=== PATIENT | female | born 1990 | race Caucasian/White ===

== ENCOUNTER 2016-06-26 09:52 | Emergency (ER) | payer BC ==
[2016-06-26 10:29] VITALS: BP 109/51
--- NOTE | 2016-06-26 12:09 | UC ---
Throat Pain/Nasal Dhiraj HPI - HPI Summary HPI Summary: sore throat, fever, nasal congestion. x 1 day. 8 months . - History of Current Complaint Chief Complaint: UCRespiratory Stated Complaint: HEADACHE SORE THROAT Time Seen by Provider: 06/26/16 11:58 Hx Obtained From: Patient Hx Last Menstrual Period: 11/04/15 ?: Yes Onset/Duration: Sudden Onset, Lasting Days Severity: Moderate Pain Intensity: 6 Pain Scale Used: 0-10 Numeric Cough: None Associated Signs & Symptoms: Positive: Dysphagia, Sinus Discomfort, Fever - Epiglottits Risk Factors Epiglottis Risk Factors: Negative - Allergies/Home Medications Allergies/Adverse Reactions: Allergies Allergy/AdvReac Type Severity Reaction Status Date / Time Bee Venom Allergy Swelling Verified 06/26/16 10:29 Home Medications: Home Medications Acetaminophen TAB* [Tylenol TAB*] 650 mg PO Q4H PRN 06/26/16 [History Confirmed 06/26/16] Vitamin TAB* 1 tab PO DAILY 06/26/16 [History Confirmed 06/26/16] PMH/Surg Hx/FS Hx/Imm Hx Previously Healthy: Yes Endocrine History Of: Denies: Diabetes, Thyroid Disease, Hyperthyroidism, Hypothyroidism, Dyslipidemia Cardiovascular History Of: Denies: Cardiac Disorders, Hypertension, Pacemaker/ICD, Myocardial Infarction , Congestive Heart Failure, Atrial Fibrillation, Deep Vein Thrombosis, Bleeding Disorders Respiratory History Of: Reports: Asthma - "I was born with it. I only had one problem with it as a child." Denies: COPD, Bronchitis, Pneumonia, Pulmonary Embolism GI/ History Of: Reports: Kidney Stones Denies: Gastroesophageal Reflux, Ulcer, Gastrointestinal Bleed, Gall Bladder Disease, Diverticulitis, Renal Disease, Urosepsis Neurological History Of: Denies: TIA, CVA, Dementia, Seizures, Migraine Psychological History Of: Reports: Anxiety, Depression Denies: Bipolar Disorder, Schizophrenia, Post Traumatic Stress Disorder Cancer History Of: Denies: Lung Cancer, Colorectal Cancer, Breast Cancer, Prostate Cancer, Cervical Cancer Other History Of: Negative For: HIV, Hepatitis B, Hepatitis C, Anticoagulant Therapy - Surgical History Surgical History: Yes Surgery Procedure, Year, and Place: Kidney stone removal. . TONSILLECTOMY - Family History Known Family History: Positive: Unknown, Hypertension, Diabetes, Other - Cancer - Social History Alcohol Use: Rare Substance Use Type: None Substance Use Comment - Amount & Last Used: daily mj use Smoking Status (MU): Current Every Day Smoker Type: Cigarettes Amount Used/How Often: 5 cig./day Have You Smoked in the Last Year: Yes Household Exposure Type: Cigarettes - Immunization History Most Recent Influenza Vaccination: none Most Recent Tetanus Shot: unknown Most Recent Pneumonia Vaccination: none Review of Systems Constitutional: Fever, Fatigue Skin: Negative Eyes: Negative ENT: Sore Throat, Nasal Discharge Respiratory: Cough Cardiovascular: Negative Gastrointestinal: Negative Genitourinary: Negative Motor: Negative Musculoskeletal: Myalgia Neurological: Negative Psychological: Negative All Other Systems Reviewed And Are Negative: Yes Physical Exam Triage Information Reviewed: Yes Appearance: Well-Nourished, Ill-Appearing, Pain Distress Vital Signs: Initial Vital Signs Temp 97.5 F 06/26/16 10:25 Pulse 86 06/26/16 10:25 Resp 14 06/26/16 10:25 BP 109/51 06/26/16 10:25 Pulse Ox 98 06/26/16 10:25 Vital Signs Reviewed: Yes Eye Exam: Normal Eyes: Positive: Conjunctiva Clear ENT: Positive: Pharyngeal erythema, Nasal drainage, TMs normal Dental Exam: Normal Neck exam: Normal Neck: Positive: Supple, Nontender, No Lymphadenopathy Respiratory Exam: Normal Respiratory: Positive: Chest non-tender, Lungs clear, Normal breath sounds Cardiovascular Exam: Normal Cardiovascular: Positive: RRR, No Murmur, Pulses Normal Abdominal Exam: Normal Abdomen Description: Positive: Nontender, No Organomegaly, Soft, Other: - 8 months Bowel Sounds: Positive: Present Musculoskeletal Exam: Normal Musculoskeletal: Positive: Strength Intact, ROM Intact, No Edema Neurological Exam: Normal Neurological: Positive: Alert, Muscle Tone Normal Psychological Exam: Normal Skin Exam: Normal Throat Pain/Nasal Course/Dx - Course Course Of Treatment: hx obtained, exam performed, rapid strep negative, HEART tone 141, no meds prescribed. educated on symptoms reflief - Differential Dx/Diagnosis Differential Diagnosis/HQI/PQRI: Influenza, Laryngitis, Mononucleosis, Otitis Media, Pharyngitis, Sinusitis, Tonsillitis, URI Provider Diagnoses: pharyngitis. fever Discharge - Discharge Plan Condition: Stable Disposition: HOME Patient Education Materials: Pharyngitis (ED) Forms: *Work Release Additional Instructions: Lots of rest and increase your fluid intake. Hot tea with lemon, nelia and honey for the sore throat. Do not take ibuprofen due to . Follow up if symptoms do not begin to resolve within the next few days.
== END 2016-06-26 12:20 | disposition home or self-care (01) ==
LOC: UCCORT 09:52
DX: O26.93 Pregnancy related conditions, unspecified, third trimester (principal); J02.9 Acute pharyngitis, unspecified; R50.9 Fever, unspecified; J45.909 Unspecified asthma, uncomplicated; O99.343 Other mental disorders complicating pregnancy, third trimester; F41.9 Anxiety disorder, unspecified; F33.8 Other recurrent depressive disorders; O99.333 Smoking (tobacco) complicating pregnancy, third trimester; F17.210 Nicotine dependence, cigarettes, uncomplicated; Z3A.32 32 weeks gestation of pregnancy; Z91.030 Bee allergy status
CPT/HCPCS: 87502; 99211; G0463

== ENCOUNTER 2016-07-18 16:53 | Emergency (ER) | payer BC ==
--- NOTE | 2016-07-18 17:25 | UC ---
Abdominal Pain Female HPI - HPI Summary HPI Summary: pt presents with FOB and mother. Pt reports gradual onset of lower pelvis and groin discomfort that is constant. Pt is 36 weeks with a schedule C- section for 09/01/16. Pt denies any pre existing conditions of preeclampsia, Gestational Diabetes or report of recent injury or fall. Pt denies any vaginal discharge or bleeding. Pt denies history of pre term labor. Pt reports that she spoke to her OB provider today requesting a release from work note that was denies by the OB. 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 during her - History of Current Complaint Chief Complaint: UCAbdominalPain Stated Complaint: ABDOMINAL PAIN Time Seen by Provider: 07/18/16 16:56 Hx Obtained From: Patient Hx Last Menstrual Period: 11/04/15 ?: Yes Onset/Duration: Gradual Onset Timing: Constant Severity Initially: Mild Severity Currently: Mild Location: Suprapubic, Other - groin Radiates: No Character: Cramping, Dull Aggravating Factor(s): Nothing Alleviating Factor(s): Nothing Associated Signs and Symptoms: Positive: Negative - Risk Factors Ectopic Risk Factor: Negative Allergies/Adverse Reactions: Allergies Allergy/AdvReac Type Severity Reaction Status Date / Time Bee Venom Allergy Swelling Verified 07/18/16 17:03 PMH/Surg Hx/FS Hx/Imm Hx Previously Healthy: Yes Endocrine History Of: Denies: Diabetes, Thyroid Disease, Hyperthyroidism, Hypothyroidism, Dyslipidemia Cardiovascular History Of: Denies: Cardiac Disorders, Hypertension, Pacemaker/ICD, Myocardial Infarction , Congestive Heart Failure, Atrial Fibrillation, Deep Vein Thrombosis, Bleeding Disorders Respiratory History Of: Reports: Asthma - "I was born with it. I only had one problem with it as a child." Denies: COPD, Bronchitis, Pneumonia, Pulmonary Embolism GI/ History Of: Reports: Kidney Stones Denies: Gastroesophageal Reflux, Ulcer, Gastrointestinal Bleed, Gall Bladder Disease, Diverticulitis, Renal Disease, Urosepsis Neurological History Of: Denies: TIA, CVA, Dementia, Seizures, Migraine Psychological History Of: Reports: Anxiety, Depression Denies: Bipolar Disorder, Schizophrenia, Post Traumatic Stress Disorder Cancer History Of: Denies: Lung Cancer, Colorectal Cancer, Breast Cancer, Prostate Cancer, Cervical Cancer Other History Of: Negative For: HIV, Hepatitis B, Hepatitis C, Anticoagulant Therapy - Surgical History Surgical History: Yes Surgery Procedure, Year, and Place: Kidney stone removal. . TONSILLECTOMY - Family History Known Family History: Positive: Unknown, Hypertension, Diabetes, Other - Cancer - Social History Occupation: Employed Full-time - works as a commercial cleaner Alcohol Use: Rare Substance Use Type: None Substance Use Comment - Amount & Last Used: daily mj use Smoking Status (MU): Current Every Day Smoker Type: Cigarettes Amount Used/How Often: 5 cig./day Have You Smoked in the Last Year: Yes Household Exposure Type: Cigarettes - Immunization History Most Recent Influenza Vaccination: none Most Recent Tetanus Shot: unknown Most Recent Pneumonia Vaccination: none Review of Systems Constitutional: Negative Skin: Negative Eyes: Negative ENT: Negative Respiratory: Negative Cardiovascular: Negative Gastrointestinal: Abdominal Pain Genitourinary: Negative Motor: Negative Neurovascular: Negative Musculoskeletal: Negative Neurological: Negative Psychological: Negative All Other Systems Reviewed And Are Negative: Yes Physical Exam Triage Information Reviewed: Yes Appearance: Well-Appearing Vital Signs: Initial Vital Signs Pulse 76 07/18/16 16:57 Resp 20 07/18/16 16:57 BP 115/65 07/18/16 16:57 Pulse Ox 100 07/18/16 16:57 Vital Signs Reviewed: Yes ENT Exam: Normal Neck exam: Normal Respiratory Exam: Normal Cardiovascular Exam: Normal Abdominal Exam: Normal Abdomen Description: Positive: Other: - heart rate @ 140, no abdominal pain appreciated during physical exam. Musculoskeletal Exam: Normal Musculoskeletal: Positive: Other: - no edeam lower extremities appreciated Neurological Exam: Normal Psychological Exam: Normal Skin Exam: Normal Abd Pain Female Course/Dx - Course Course Of Treatment: I discussed with the pt the need to seek further examination at the Emergency Department if her regular OB provider is not available. I reveiwed her UA results and her vital signs with her. Pt verbalized understanding and agreed to plan of care. - Differential Dx/Diagnosis Differential Diagnosis: , Urinary Tract Infection, Other - abdominal pain pre term labor? Provider Diagnoses: abdominal pain. labor-? - Physician Notification/Consults Discussed Patient Care With: Dr. Almanza Time Discussed With Above Provider: 18:10 - Dr. Almanza accepted pt Discharge - Discharge Plan Condition: Stable Disposition: AGAINST MEDICAL ADVICE Referrals: Bib Vargas MD [Primary Care Provider] -
[2016-07-18 18:02] VITALS: BP 114/74
== END 2016-07-18 17:59 | disposition left against medical advice (07) ==
LOC: UCEAST 16:53
DX: O26.893 Other specified pregnancy related conditions, third trimester (principal); Z3A.36 36 weeks gestation of pregnancy; R10.30 Lower abdominal pain, unspecified; Z87.442 Personal history of urinary calculi; F12.90 Cannabis use, unspecified, uncomplicated; F17.210 Nicotine dependence, cigarettes, uncomplicated
CPT/HCPCS: 81003; 99213; G0463

== ENCOUNTER → 2016-07-18 18:17 | Emergency (ER) | payer BC ==
[2016-07-18 18:28] VITALS: BP 123/67
== END | disposition other institution (70) ==
LOC: ED 18:17
DX: R10.9 Unspecified abdominal pain (principal); Z53.20 Procedure and treatment not carried out because of patient's decision for unspecified reasons

== ENCOUNTER 2016-09-02 07:59 | Inpatient (IN) | payer BC ==
[~2016-09-02 07:59] MED LIST: Buffered Lidocaine 1% SYRIN* 3 ML/SYR SYRINGE INTRADERM ONE; Sodium Citrate/Citric Acid* 15 ML UDC PO ONE
[2016-09-02] MEDS ORDERED: Lidocaine 1% MPF* 2 ML VIAL ONE (09:03)
[2016-09-02] MEDS ORDERED: ceFAZolin 2 GM PREMIX(*) 2 GM/50 ML BAG IVPB ONE (09:05)
[2016-09-02] MEDS ORDERED: Morphine PF AMP (0.5MG/ML)* 5 MG/10 ML AMP ONE (10:20)
[2016-09-02] MEDS ORDERED: Phenylephrine IV* 40 MCG/ML 10 ML SYRINGE ONE (10:20)
[2016-09-02] MEDS ORDERED: OXYTOCIN* 10 UNITS/ML 1 ML VIAL ONE (10:20)
[2016-09-02] MEDS ORDERED: Ondansetron INJ* 2 MG/ML VIAL IV PRN ×2 (10:35→11:19)
[2016-09-02] MEDS ORDERED: fentaNYL* 50 MCG/ML 2 ML VIAL (100 MCG VIAL) IV PRN (10:35)
[2016-09-02] MEDS ORDERED: Ketorolac INJ* 30 MG/ML 1 ML VIAL ONE (10:44)
[2016-09-02] MEDS ORDERED: fentaNYL* 50 MCG/ML 2 ML VIAL (100 MCG VIAL) ONE (11:11)
[2016-09-02] MEDS ORDERED: Naloxone* 0.4 MG/ML 1 ML VIAL IV PRN (11:19)
[2016-09-02] MEDS ORDERED: diPHENhydraMINE IV* 50 MG/ML 1 ml VIAL (BENADRYL) IV PRN (11:19)
[2016-09-02] MEDS ORDERED: oxyCODONE/Acetamin 5/325 MG* TAB PO PRN ×2 (11:19)
[2016-09-02] MEDS ORDERED: Oxytocin in LR* 20 UNITS/1,000 ML BAG IVPB ONE (12:10)
[2016-09-02] MEDS ORDERED: Witch Hazel PAD* JAR TOPICAL PRN (12:27)
[2016-09-02] MEDS ORDERED: Dibucaine 1% 28.35 GM TUBE PR PRN (12:27)
[2016-09-02] MEDS ORDERED: Glycerin ADULT SUPP PR PRN (12:27)
[2016-09-02] MEDS ORDERED: Oxytocin in LR* 20 UNITS/1,000 ML BAG IVPB SCH (13:00)
[2016-09-02] MEDS: Simethicone CHEW TAB* 80 MG PO SCH ×3 (18:10→20:16)
[2016-09-02] MEDS: Docusate CAP* 100 MG PO SCH ×2 (18:10→20:16)
[2016-09-02] MEDS: Ketorolac INJ* 30 MG/ML 1 ML VIAL IV PRN (20:14)
[2016-09-03] MEDS ORDERED: oxyCODONE/Acetamin 5/325 MG* TAB PO PRN (03:00)
[2016-09-03] MEDS ORDERED: Acetaminophen TAB* 325 MG PO PRN (03:00)
--- NOTE | 2016-09-03 03:21 | OP ---
DATE OF OPERATION: 09/02/16 - ROOM #[facility]CHOB-116 DATE OF : 89 SURGEON: Teresa Ron MD ASSISTANTS: Dr. Farah and Violet Quick CNM. ANESTHESIOLOGIST: Dr. Veronica. ANESTHESIA: Spinal. PRE-OP DIAGNOSES: 1. 39 plus weeks gestation, prior section. 2. Multiparity, desires permanent sterilization. POST-OP DIAGNOSES: 1. 39 plus weeks gestation, prior section. 2. Multiparity, desires permanent sterilization. OPERATIVE PROCEDURE: 1. Elective repeat . 2. Bilateral fimbriectomies. ESTIMATED BLOOD LOSS: 600 cc. SPECIMEN: Bilateral fimbriectomies. FLUIDS: 2600 cc. DRAINS: Huffman catheter 300 cc clear urine. FINDINGS: Viable female infant in the vertex presentation, left occiput transverse position. Cord around the neck x1 reduced. Apgars were 9 and 9. Weight was 6 pounds 1 ounce. Normal-appearing uterus, normal-appearing ovaries and fallopian tubes bilaterally. COMPLICATIONS: None. COUNTS: Sponge, lap, and needle count correct x2. CONDITION: The patient tolerated the procedure well and was brought to recovery room awake and in stable condition. DESCRIPTION OF PROCEDURE: The patient was brought to the operating room when spinal anesthesia was found to be adequate. A Huffman catheter was placed under sterile conditions. The patient was prepped and draped in the usual sterile fashion in the dorsal supine position with a leftward tilt. Time-out was performed. The spinal was tested with Allis clamps and found to be adequate. A Pfannenstiel skin incision was made using the old incision. This was carried down to underlying layer of fascia. The fascia was incised in the midline and the fascial incision was extended laterally. The fascia was grasped with Fran clamps and the rectus muscle was dissected using sharp and blunt dissection. The rectus muscle was in the midline. The peritoneum was identified, tented up, and entered bluntly. Peritoneal incision was extended bluntly. The bladder blade was inserted. The vesicouterine peritoneum was identified and a bladder flap was created. The bladder blade was reinserted. A low flap transverse incision was made on the uterus to the level of the membranes. The uterine incision was extended bluntly. The membranes were ruptured with the Allis clamps. Clear amniotic fluid was encountered. The infant was delivered atraumatically from the vertex presentation. Cord around the neck x1 was reduced. The baby was vigorous. The cord was milked, clamped and cut and the infant was handed off to the waiting rack production worker, Dr. Mckeon. Apgars were 9 and 9. The placenta was delivered. The uterus was exteriorized. The uterus was cleared off all clots and debris and the uterine incision was repaired using 0 Vicryl in a running locked fashion. A second layer of the same suture was used to imbricate and obtain excellent hemostasis. The ovaries and fallopian tubes were examined and found to be normal. Attention was turned to the patient's left fallopian tube, which was followed out to the fimbriated end. It was doubly clamped along the distal two thirds of the left fallopian tube with a Sylvie clamp. A free tie of 0 Vicryl was placed and then a suture ligature of 0 Vicryl was placed. Portion of fallopian tube including all of the fimbriae was excised. Excellent hemostasis was noted. Attention was then turned to the patient's right fallopian tube, which was followed out to the fimbriated end. This was also doubly clamped with the Sylvie clamp. A free tie of 0 Vicryl was placed. Suture ligature of 0 Vicryl was placed and the distal two thirds of the fallopian tube were excised. Excellent hemostasis was noted at that site. Once again, the uterine incision was examined and found to be hemostatic. The abdomen and pelvis were copiously irrigated with warm normal saline. The uterus was returned to the pelvis. The gutters were cleared of all clots and debris and again the uterine incision was examined and found to be hemostatic. Both tubal ligation sites were examined and found to be hemostatic. The peritoneum was closed using 3-0 Vicryl. The subfascial layer was examined and found to be hemostatic. The fascia was closed using 0 Vicryl. The subcutaneous tissue was irrigated. Any small bleeders were cauterized with Bovie. The subcutaneous tissue was reapproximated with 3 interrupted sutures of 3-0 Vicryl. The skin was closed with 4-0 Monocryl in a subcuticular fashion. Mastisol was applied. Steri-Strips were applied. A pressure dressing was applied and the patient was brought to recovery room, awake, and in stable condition. The fundus was firm and the Huffman catheter was draining clear urine. [id number] #: [id number] MTDD
[2016-09-03] MEDS: Ketorolac INJ* 30 MG/ML 1 ML VIAL IV PRN (04:20)
[2016-09-03] MEDS: oxyCODONE/Acetamin 5/325 MG* TAB PO PRN ×3 (04:20→19:40)
[2016-09-03 08:15] LABS: Hematocrit 35 % (35-47); Hemoglobin 11.5 g/dl (12.0-16.0); Mean Corpuscular HGB Conc 33 g/dl (31-36); Mean Corpuscular Hemoglobin 27 pg (27-31); Mean Corpuscular Volume 81 fL (80-97); Mean Platelet Volume 8 um3 (7.4-10.4); Red Blood Count 4.33 10^6/ul (4.0-5.4); Red Cell Distribution Width 14 % (10.5-15); White Blood Count 16.3 10^3/ul (3.5-10.8)
[2016-09-03] MEDS: Docusate CAP* 100 MG PO SCH ×3 (08:50→20:10)
[2016-09-03] MEDS: Simethicone CHEW TAB* 80 MG PO SCH ×4 (08:50→20:10)
[2016-09-03] MEDS ORDERED: Tetan/Diph/Pertus SYR(Tdap)* 0.5 ML SYR(BOOSTRIX) use SYR IM ONE (09:00)
[2016-09-03] MEDS ORDERED: Ferrous Gluconate TAB* 324 MG TAB PO SCH (09:00)
[2016-09-03] MEDS: Ibuprofen TAB* 600 MG PO PRN ×2 (11:29→17:46)
[2016-09-04] MEDS: Ibuprofen TAB* 600 MG PO PRN ×3 (01:33→14:18)
[2016-09-04] MEDS: oxyCODONE/Acetamin 5/325 MG* TAB PO PRN ×2 (05:58→14:17)
[2016-09-04] MEDS: Simethicone CHEW TAB* 80 MG PO SCH ×2 (07:24→14:17)
[2016-09-04] MEDS: Docusate CAP* 100 MG PO SCH ×2 (07:24→14:17)
[2016-09-04 07:28] VITALS: BP 115/52
== END 2016-09-04 16:04 | disposition home or self-care (01) | DRG 540 ==
LOC: MCHOB 07:59
PROVIDERS: ADMIT Obstetrics & Gynecology; ATTEND Obstetrics & Gynecology
PROC: 0UB70ZZ Excision of Bilateral Fallopian Tubes, Open Approach (ICD-10-PCS; 2016-09-02)
PROC: 10D00Z1 Extraction of Products of Conception, Low, Open Approach (ICD-10-PCS; principal; 2016-09-02 09:45)
DX: O34.211 Maternal care for low transverse scar from previous cesarean delivery (principal); F17.210 Nicotine dependence, cigarettes, uncomplicated; O99.334 Smoking (tobacco) complicating childbirth; F12.10 Cannabis abuse, uncomplicated; Z3A.39 39 weeks gestation of pregnancy; Z37.0 Single live birth
CPT/HCPCS: 36415; 85025; 88302; 90715; A9270-GY; J0690; J1200; J1885; J2405; J2590; J3010

== ENCOUNTER 2017-10-23 10:24 | Emergency (ER) | payer BC ==
[2017-10-23 10:35] VITALS: BP 127/75
--- NOTE | 2017-10-24 09:32 | UC ---
Stacey Houser Tenzin, scribed for Munira Messer MD on 10/23/17 at 1103 . General HPI - HPI Summary HPI Summary: Pt is a 26 years old female presenting to the complaining of sore throat and blisters on her hands today. Pt reports that her children have hand foot mouth disease and they have blisters too. Pt is also complaining of fever at 102.7 last night. Pt rates the pain at 6/10 in severity and describes it as aching, sharp and burning. Pt with sores in mouth - painful swallowing. No aggravating and alleviating factors were noted. She took ibuprofen last night at 18:00. Pt is not allergic to any medication. She is not . Pt's medications reviewed this visit - History of Current Complaint Chief Complaint: UCGeneralIllness Stated Complaint: SORE THROAT FEVER BODYACHES BLISTERS ON HANDS Time Seen by Provider: 10/23/17 10:41 Hx Obtained From: Patient Hx Last Menstrual Period: 10/09/17 Onset/Duration: Gradual Onset Pain Intensity: 6 - Allergy/Home Medications Allergies/Adverse Reactions: Allergies Allergy/AdvReac Type Severity Reaction Status Date / Time bee venom protein (honey bee) Allergy anaph Verified 10/23/17 10:36 PMH/Surg Hx/FS Hx/Imm Hx - Additional Past Medical History Additional PMH: NEGATIVE: [place] Previously Healthy: Yes GI/ History: Kidney Stones Other History Of: Negative For: HIV, Hepatitis B, Hepatitis C, Anticoagulant Therapy - Surgical History Surgical History: Yes Surgery Procedure, Year, and Place: Kidney stone removal. . TONSILLECTOMY - Family History Known Family History: Positive: Unknown, Hypertension, Diabetes, Other - Cancer - Social History Alcohol Use: Rare Substance Use Type: None Substance Use Comment - Amount & Last Used: regular use Smoking Status (MU): Light Every Day Tobacco Smoker Type: Cigarettes Amount Used/How Often: 5 cig./day Have You Smoked in the Last Year: Yes Household Exposure Type: Cigarettes - Immunization History Most Recent Influenza Vaccination: none Most Recent Tetanus Shot: unknown Most Recent Pneumonia Vaccination: none Review of Systems Constitutional: Negative, Fever Skin: Other - blisters. Eyes: Negative ENT: Sore Throat Respiratory: Negative Cardiovascular: Negative Gastrointestinal: Negative Genitourinary: Negative Motor: Negative Neurovascular: Negative Musculoskeletal: Negative Neurological: Negative Psychological: Negative All Other Systems Reviewed And Are Negative: Yes Physical Exam - Summary Physical Exam Summary: Vital Signs Reviewed: Yes A+Ox3, no distress Eyes: Conjunctiva Clear HALLE, EOM intact and full ENT: Hearing grossly normal TM x2 clear turbinates inflammed and boggy + PND no exudate Pt with flat,ulcerative lesions to soft palate mild erythema, no exudate uvula midline no exudate neck: supple no LA Respiratory: Positive: No respiratory distress, No accessory muscle use CTA throughotu no w/r Cardiovascular: skin color reflect adequate perfusion RRR nl s1, sw Musculoskeletal Exam: GOFF x 4 without difficulty Neurological: Positive: Alert, ambulatory without difficulty Psychological: Positive: Normal Response To Family Skin: Positive: small bliser lisle lesions on b.l hand, fingers, palms mild tender no edema no ecchymosis Triage Information Reviewed: Yes Vital Signs: Initial Vital Signs Temp 98 F 10/23/17 10:33 Pulse 92 10/23/17 10:33 Resp 16 10/23/17 10:33 BP 127/75 10/23/17 10:33 Pulse Ox 99 10/23/17 10:33 Course/Dx - Course Course Of Treatment: Pt with fever, mouth and hand sores. pts children with hand foot mouth. pt with fever yesterday. Pt with exam finidng s/w h/f/m. recommend motrin/apap. cold foods. secretion precaution. work note. pt comfortable and in agreement with plan - Differential Dx - Multi-Symptom Provider Diagnoses: hand foot and mouth Discharge - Sign-Out/Discharge Documenting (check all that apply): Discharge/Admit/Transfer - Discharge Plan Condition: Stable Disposition: HOME Patient Education Materials: Hand, Foot, and Mouth Disease (ED) Forms: *Work Release Referrals: No Primary Care Phys,NOPCP [Primary Care Provider] - Additional Instructions: - These infections are spread by oral secretions. Do not share eating or drinking utensils. Frequent hand washing is important. Clean items that may get your secretions on them such as cell phones, ipads, computer mouse, television remotes. Once you start to feel better, change your pillowcase and your toothbrush - Okay to alternate ibuprofen (Advil, Motrin) and Tylenol product every 3 hours for pain or fever. Take with food. Do NOT take for more than 4-5 days. - Okay to gargle and spit every 4 hours as needed for pain - Stay well hydrated - frequent sips of cold fluids will be soothing to your throat (popsicles, jello, ice cream, ice water). Avoid excess caffeine until your symptoms have resolved. - get plenty of restful sleep - contact your doctor or return with questions or concerns - Billing Disposition and Condition Condition: STABLE Disposition: Home The documentation as recorded by the Stacey evans Tenzin accurately reflects the service I personally performed and the decisions made by , Munira Messer MD.
== END 2017-10-23 11:07 | disposition home or self-care (01) ==
LOC: UCEAST 10:24
DX: B08.4 Enteroviral vesicular stomatitis with exanthem (principal); Z91.030 Bee allergy status; F17.210 Nicotine dependence, cigarettes, uncomplicated
CPT/HCPCS: 99211; G0463

== ENCOUNTER 2019-06-13 13:34 | Emergency (ER) | payer BC ==
[2019-06-13 13:59] VITALS: BP 125/84
--- NOTE | 2019-06-13 14:49 | UC ---
Complaint Female HPI - HPI Summary HPI Summary: Ms. Ellis started yesterday morning with frequency urgency and dysuria. She has a history of having multiple urinary tract infections however she has not had one in several years. She denies any fever, nausea and vomiting or back pain. - History Of Current Complaint Chief Complaint: UCGU Stated Complaint: URINARY ISSUES Time Seen by Provider: 06/13/19 14:32 Hx Last Menstrual Period: 05/30/19 ?: No - Tubal 3 years ago Severity Initially: Moderate Severity Currently: Moderate Pain Intensity: 6 Character: Burning Aggravating Factor(s): Urination Alleviating Factor(s): Nothing Associated Signs And Symptoms: Positive: Negative - Allergies/Home Medications Allergies/Adverse Reactions: Allergies Allergy/AdvReac Type Severity Reaction Status Date / Time bee venom protein (honey bee) Allergy anaph Verified 06/13/19 13:59 Home Medications: Home Medications NK [No Home Medications Reported] 06/13/19 [History Confirmed 06/13/19] PMH/Surg Hx/FS Hx/Imm Hx Previously Healthy: Yes Other History Of: Negative For: HIV, Hepatitis B, Hepatitis C, Anticoagulant Therapy - Surgical History Surgical History: Yes Surgery Procedure, Year, and Place: Kidney stone removal. . TONSILLECTOMY. Tubal - Family History Known Family History: Positive: Unknown, Hypertension, Diabetes, Other - Cancer - Social History Alcohol Use: Rare Substance Use Type: None Substance Use Comment - Amount & Last Used: regular use Smoking Status (MU): Light Every Day Tobacco Smoker Type: Cigarettes Amount Used/How Often: 5 cig./day Have You Smoked in the Last Year: Yes Household Exposure Type: Cigarettes - Immunization History Most Recent Influenza Vaccination: none Most Recent Tetanus Shot: unknown Most Recent Pneumonia Vaccination: none Review of Systems All Other Systems Reviewed And Are Negative: Yes Constitutional: Positive: Negative Skin: Positive: Negative Gastrointestinal: Positive: Negative Genitourinary: Positive: Dysuria, Frequency, Urgency Neurovascular: Positive: Negative Physical Exam - Summary Physical Exam Summary: She is nontoxic in appearance with stable vital signs Triage Information Reviewed: Yes Appearance: Well-Appearing Vital Signs: Initial Vital Signs Temp 97.8 F 06/13/19 13:56 Pulse 69 06/13/19 13:56 Resp 18 06/13/19 13:56 BP 125/84 06/13/19 13:56 Pulse Ox 100 06/13/19 13:56 Vital Signs Reviewed: Yes Eye Exam: Normal ENT Exam: Normal Respiratory Exam: Normal Cardiovascular Exam: Normal Abdominal Exam: Normal Complaint Female Dx - Course Course Of Treatment: I will treat her U/A and symptoms while awaiting cultures. - Differential Dx/Diagnosis Provider Diagnosis: UTI (urinary tract infection) Discharge ED - Sign-Out/Discharge Documenting (check all that apply): Patient Departure All imaging exams completed and their final reports reviewed: No Studies - Discharge Plan Condition: Stable Disposition: HOME Patient Education Materials: Urinary Tract Infection in Women (ED) Referrals: No Primary Care Phys,NOPCP [Primary Care Provider] - - Billing Disposition and Condition Condition: STABLE Disposition: Home
--- NOTE | 2019-06-15 16:36 | UC ---
- Progress Note Progress Note: Urine culture with no growth. If feeling better - may complete anbx If not feeling better - stop anbx and recommend recheck with PCP Course/Dx - Diagnoses Provider Diagnoses: UTI (urinary tract infection) Discharge ED - Sign-Out/Discharge Documenting (check all that apply): Post-Discharge Follow Up All imaging exams completed and their final reports reviewed: No Studies - Discharge Plan Condition: Stable Disposition: HOME Prescriptions: Nitrofurantoin Monohyd/M-Cryst [Macrobid 100 mg Capsule] 100 mg PO BID #14 cap Patient Education Materials: Urinary Tract Infection in Women (ED) Referrals: No Primary Care Phys,NOPCP [Primary Care Provider] - - Billing Disposition and Condition Condition: STABLE Disposition: Home
--- NOTE | 2019-06-16 07:01 | UC ---
- Progress Note Progress Note: Patient's urine culture showed no growth. Should stop antibiotics. If still having symptoms she should follow up with her PCP or return to urgent care Course/Dx - Diagnoses Provider Diagnoses: UTI (urinary tract infection) Discharge ED - Sign-Out/Discharge Documenting (check all that apply): Post-Discharge Follow Up All imaging exams completed and their final reports reviewed: No Studies - Discharge Plan Condition: Stable Disposition: HOME Prescriptions: Nitrofurantoin Monohyd/M-Cryst [Macrobid 100 mg Capsule] 100 mg PO BID #14 cap Patient Education Materials: Urinary Tract Infection in Women (ED) Referrals: No Primary Care Phys,NOPCP [Primary Care Provider] - - Billing Disposition and Condition Condition: STABLE Disposition: Home
== END 2019-06-13 14:57 | disposition home or self-care (01) ==
LOC: UCEAST 13:34
DX: N39.0 Urinary tract infection, site not specified (principal); Z91.030 Bee allergy status; F17.210 Nicotine dependence, cigarettes, uncomplicated
CPT/HCPCS: 81003; 87086; 99212; G0463

== ENCOUNTER 2019-07-28 10:18 | Emergency (ER) | payer BC ==
[2019-07-28 11:57] VITALS: BP 138/78
--- NOTE | 2019-07-28 12:16 | UC ---
Respiratory Complaint HPI - HPI Summary HPI Summary: The patient is a 28-year-old female who works at [email or web address]. She has had less in the 48 hour history of fever, chills, headache, cough and nausea. She denies any chest pain or shortness of breath. She has had no diarrhea. She denies any UTI symptoms. She has a history of asthma. - History of Current Complaint Chief Complaint: UCGeneralIllness Stated Complaint: COUGH,FEVER,NAUSEA,HEADACHE Time Seen by Provider: 07/28/19 11:24 Hx Obtained From: Patient Hx Last Menstrual Period: 05/30/19 Onset/Duration: Gradual Onset, Lasting Hours Timing: Constant Severity Initially: Moderate Severity Currently: Moderate Pain Intensity: 6 Pain Scale Used: 0-10 Numeric Character: Cough: Nonproductive Aggravating Factors: Exertion, Deep Breaths Alleviating Factors: Nothing Associated Signs And Symptoms: Positive: Fever, Chills, Nasal Congestion - Allergies/Home Medications Allergies/Adverse Reactions: Allergies Allergy/AdvReac Type Severity Reaction Status Date / Time bee venom protein (honey bee) Allergy anaph Verified 07/28/19 10:52 PMH/Surg Hx/FS Hx/Imm Hx Previously Healthy: Yes Other History Of: Negative For: HIV, Hepatitis B, Hepatitis C, Anticoagulant Therapy - Surgical History Surgical History: Yes Surgery Procedure, Year, and Place: Kidney stone removal. . TONSILLECTOMY. Tubal - Family History Known Family History: Positive: Hypertension, Diabetes, Other - Cancer - Social History Alcohol Use: Rare Substance Use Type: None Substance Use Comment - Amount & Last Used: regular use Smoking Status (MU): Light Every Day Tobacco Smoker Type: Cigarettes Amount Used/How Often: 5 cig./day Have You Smoked in the Last Year: Yes Household Exposure Type: Cigarettes - Immunization History Most Recent Influenza Vaccination: none Most Recent Tetanus Shot: unknown Most Recent Pneumonia Vaccination: none Review of Systems All Other Systems Reviewed And Are Negative: Yes Constitutional: Positive: Fever, Chills, Fatigue Skin: Positive: Negative Eyes: Positive: Negative ENT: Positive: Negative Respiratory: Positive: Cough Cardiovascular: Positive: Negative Gastrointestinal: Positive: Nausea Genitourinary: Positive: Negative Motor: Positive: Negative Neurovascular: Positive: Negative Musculoskeletal: Positive: Myalgia Neurological/Mental Status: Positive: Headache Psychological: Positive: Negative Physical Exam Triage Information Reviewed: Yes Appearance: Well-Appearing, No Pain Distress, Well-Nourished Vital Signs: Initial Vital Signs Temp 98.2 F 07/28/19 11:52 Pulse 86 07/28/19 11:52 Resp 20 07/28/19 11:52 BP 138/78 07/28/19 11:52 Pulse Ox 96 07/28/19 11:52 Vital Signs Reviewed: Yes Eyes: Positive: Conjunctiva Clear ENT: Positive: Hearing grossly normal, TMs normal, Uvula midline. Negative: Pharyngeal erythema, Nasal congestion, Nasal drainage, Tonsillar swelling, Tonsillar exudate, Trismus, Muffled voice, Hoarse voice, Dental tenderness, Sinus tenderness Dental Exam: Normal Neck: Positive: Supple, Nontender, No Lymphadenopathy Respiratory: Positive: Lungs clear, Normal breath sounds, No respiratory distress, No accessory muscle use Cardiovascular: Positive: RRR, No Murmur Musculoskeletal: Positive: ROM Intact, No Edema Neurological: Positive: Alert Psychological Exam: Normal Skin Exam: Normal Diagnostics - Laboratory Lab Results: POC influneza - Respiratory Course/Dx - Differential Dx/Diagnosis Provider Diagnosis: Viral syndrome Discharge ED - Sign-Out/Discharge Documenting (check all that apply): Patient Departure All imaging exams completed and their final reports reviewed: No Studies - Discharge Plan Condition: Stable Disposition: HOME Patient Education Materials: Viral Syndrome (ED) Forms: *Work Release Referrals: [facility] [Outside] - If Needed (you bp was a little high here. Should be rechecked in 2-6 mos) Additional Instructions: you FLU test was NEGATIVE A test for COVID -19 is pending Recheck for new or worsening symptoms see In-Home Isolation form he health department will be contacting you - Billing Disposition and Condition Condition: STABLE Disposition: Home
[2019-07-28 12:38] LABS: Influenza A Molecular Negative (Negative); Influenza B Molecular Negative (Negative)
== END 2019-07-28 12:44 | disposition home or self-care (01) ==
LOC: UCEAST 10:18
DX: B34.9 Viral infection, unspecified (principal); R68.83 Chills (without fever); R51 Headache; R05 Cough; R11.0 Nausea; J45.909 Unspecified asthma, uncomplicated; F17.210 Nicotine dependence, cigarettes, uncomplicated; M79.10 Myalgia, unspecified site; R53.83 Other fatigue; Z91.030 Bee allergy status
CPT/HCPCS: 99211; G0463; U0002